=== PATIENT | male | born 1960 | race Caucasian/White ===

== ENCOUNTER 2021-01-20 09:54 | Emergency (ER) | payer OTHER, SELFPAY ==
--- NOTE | ~2021-01-20 | XR_ITS ---
EXAMINATION: XR chest 2V DATE: 01/20/2021 10:14 INDICATION: Hypertension, heart palpitations TECHNIQUE: PA and lateral views of the chest are obtained. COMPARISON: None available FINDINGS: The lungs are free of acute opacities. There is no pleural effusion or pneumothorax. The ca rdiomediastinal silhouette is normal. There are bridging osteophytes at multiple levels in the spine, consistent with diffuse idiopathic skeletal hyperostosis (DISH). Changes of anterior fusion are note d in the lower cervical spine. 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 IMPRESSION: 1. No acute cardiopulmonary abnormality. Reviewed, dictated and finalized at location B.
[2021-01-20 09:57] VITALS: BP 146/94; PULSE 65; RESP 18; TEMP 36.2; O2SAT 98
--- NOTE | 2021-01-20 10:00 | ECG_ITS ---
Measurements Intervals [place] Rate: 61 P: 13 [place]: 186 QRS: -44 QRSD: 100 T: 28 QT: 386 QTc: 391 Interpretive Statements SINUS RHYTHM LEFT AXIS DEVIATION INCOMPLETE RIGHT BUNDLE BRANCH BLOCK BORDERLINE R WAVE PROGRESSION, ANTERIOR LEADS BORDERLINE ECG Electronically Signed On 01-20-2021 13:02:45 CDT by Richi Harrell D.O.
--- NOTE | 2021-01-20 10:07 | PC.NURSE ---
Taken to XRay at this time before blood could be obtained.
[2021-01-20 10:29] LABS: Basophils Absolute Auto 0.1 K/mm3 (0.0-0.1); Basophils Percent Auto 0.8 % (0.2-1.2); Eosinophils Absolute Auto 0.2 K/mm3 (0-0.3); Eosinophils Percent Auto 1.7 % (0-4.4); Hematocrit 46.4 % (42.0-52.0); Immature Granulocyte Absolute 0.04 K/mm3 (0.00-0.031); Immature Granulocyte Percent A 0.5 % (0-0.5); Lymphocytes Absolute Auto 2.47 K/mm3 (0.9-3.2); Lymphocytes Percent Auto 28.8 % (18.3-44.2); Mean Corpuscular HGB Conc 34.5 g/dl (32-36); Mean Corpuscular Hemoglobin 33.4 pg (26-34); Mean Corpuscular Volume 96.9 fl (80-100); Mean Platelet Volume 10.3 fl (7.4-10.4); Monocytes Absolute Auto 0.9 K/mm3 (0.1-0.6); Neutrophils Absolute Auto 4.9 K/mm3 (1.3-6.7); Neutrophils Percent Auto 57.2 % (45.5-73.1); Platelet Count Result 151 k/mm3 (150-375); Red Blood Count 4.79 M/mm3 (4.6-6.20); Red Cell Distribution Width 12.4 % (11.5-14.5); White Blood Count 8.6 K/mm3 (4.5-10.0)
[2021-01-20 10:37] LABS: Anion Gap 10 mmol/L (8-16); Blood Urea Nitrogen 11 mg/dL (9-20); Calcium 9.3 mg/dL (8.4-10.2); Carbon Dioxide 22 mmol/L (22-30); Chloride 109 mmol/L (98-107); Estimated CRCL calculation 103 ml/min; Estimated Glomerular Filt Rate > 60; Glucose 93 mg/dL (75-110); Potassium 4.2 mmol/L (3.4-5.0); Sodium 141 mmol/L (137-145)
[2021-01-20 10:44] LABS: Partial Thromboplastin Time 29.1 SECONDS (22.3-36.8)
[2021-01-20 10:48] LABS: Troponin I < 0.012 ng/mL (0.000-0.034)
[2021-01-20 11:29] VITALS: BP 189/101; PULSE 61; RESP 15; O2SAT 97
--- NOTE | 2021-01-20 11:32 | PC.NURSE ---
Patient denies chest pain, headache, SOB, or dizziness at this time.
[2021-01-20 12:08] VITALS: BP 185/74; PULSE 58; RESP 18; O2SAT 100
--- NOTE | 2021-01-20 12:48 | ED.GENADULT ---
HPI - General Adult General Chief complaint: Recheck/Abnormal Lab/Rx Stated complaint: elevated BP Time Seen by Provider: 01/20/21 11:26 Source: patient, family and RN notes reviewed Mode of arrival: ambulatory Limitations: no limitations History of Present Illness HPI narrative: Patient is a 60-year-old male who presents to emergency department for evaluation of palpitations that occurred patient on arrival to emergency department is in no distress notes that he has had this sensation of an extra beat that he has noticed before seems as though it became more frequent or obvious today patient went and had his blood pressure checked at an outside facility which was elevated patient was going to follow with primary care but then decided to come to emergency department for evaluation patient denies any pain recent illness or other complaints. Related Data Allergies Allergy/AdvReac Type Severity Reaction Status Date / Time NKDA Allergy Unknown Unknown Uncoded 06/29/20 11:04 Review of Systems Review of Systems: All systems reviewed & are unremarkable except as noted in HPI and below PMFSH Past Medical History Medical History (Updated 01/20/21 @ 12:53 by Adiel Pena PA-C) BMI 35.0-35.9,adult Hypertension Family History Family History Father Hypertension Mother Hypertension Cerebrovascular accident Sibling Hypertension Malignant neoplasm of prostate Grandparent Cerebrovascular accident Social History Social History Smoking status: Former smoker Alcohol intake: current Gender identity (if verbalized by the patient): Male Exam Narrative: Exam Narrative: GENERAL: Well-appearing, obese, and in no acute distress. HEAD: Normocephalic, atraumatic. EYES: PERRLA and EOMI. ENT: Nares clear, no rhinorrhea or epistaxis. Mucous membranes moist. NECK: Supple. No adenopathy or masses. CHEST: Clear to auscultation. No respiratory distress. No wheezes rales or rhonchi HEART: Regular rate and rhythm. No murmur heard. EXTREMITIES: Normal range of motion. No edema. SKIN: Warm, dry, no rash. NEURO: No focal deficits. Alert and oriented x3. Cranial nerves II through XII grossly intact PSYCH: Normal mood and affect. Course Course Emergency Course: Patient presented for palpitations does have occasional premature beats which is likely the sensation that he is feeling patient was evaluated made aware of case findings and will be referred back to primary care he is aware of discussions with primary care and agrees with this plan patient is denying any pain or other complaints and feels comfortable to follow-up on an outpatient basis ABCs and vital signs intact and stable Consultations Consultation #1: Discussed case with primary care will follow patient in clinic Date: 01/20/21 Time: 12:54 Vital Signs Vital signs: Vital Signs Temperature 97.1 F L 01/20/21 09:57 Pulse Rate 65 01/20/21 09:57 Respiratory Rate 18 01/20/21 09:57 Blood Pressure 146/94 H 01/20/21 09:57 Pulse Oximetry 98 01/20/21 09:57 Temperature 97.1 F L 01/20/21 09:57 Pulse Rate 58 L 01/20/21 12:08 Respiratory Rate 18 01/20/21 12:08 Blood Pressure 185/74 H 01/20/21 12:08 Pulse Oximetry 100 01/20/21 12:08 Medical Decision Making MDM Narrative Medical decision making narrative: Patient with palpitations found to have premature beat no other high risk changes in the evaluation will follow with primary care felt appropriate for outpatient reevaluation patient hemodynamically stable in agreement with this plan Vital Signs Vital Signs: Vital Signs Temperature 97.1 F L 01/20/21 09:57 Pulse Rate 65 01/20/21 09:57 Respiratory Rate 18 01/20/21 09:57 Blood Pressure 146/94 H 01/20/21 09:57 Pulse Oximetry 98 01/20/21 09:57 Temperature 97.1 F L 01/20/21 09:57 Pulse Rate 58 L 01/20/21 12:08 Respi
[2021-01-20 13:21] VITALS: BP 155/102; PULSE 65; RESP 18; O2SAT 99
== END 2021-01-20 13:22 | disposition home or self-care (01) ==
PROVIDERS: Emergency Medicine Emergency Medical Services; Emergency Provider Emergency Medicine; PCP Family Medicine
DX: R00.2 Palpitations (principal); I10 Essential (primary) hypertension; Z87.891 Personal history of nicotine dependence; I45.10 Unspecified right bundle-branch block; R94.31 Abnormal electrocardiogram [ECG] [EKG]
CPT/HCPCS: 36415; 71046; 80048; 84443; 84484; 85025; 85610; 85730; 93005; 99284

== ENCOUNTER 2021-02-06 08:27 | Outpatient (CLI) | payer OTHER, SELFPAY ==
--- NOTE | ~2021-02-06 | NM_ITS ---
EXAMINATION: NM stress w perf spect multi DATE: 02/06/2021 11:17 INDICATION: Chest pain. Palpitations. Essential hypertension. TECHNIQUE: Rest images were obtained following intravenous administration of 10.5 mCi Tc99m tetrofosm in (Myoview). The patient performed an exercise activity. At peak exercise, 32.8 mCi Tc99m tetrofosmi n (Myoview) was administered intravenously, and stress images were obtained. Data was reconstructed i nto short axis and horizontal and vertical long axis SPECT images. Gated SPECT images were also obtai roopa. COMPARISON: None. FINDINGS: There is normal left ventricular perfusion without definite evidence of reversible or fixed perfusion abnormality to suggest ischemia or infarction. There is normal left ventricular chamber size, wall motion and ejection fraction. Left ventricular ejection fraction measures >70%. IMPRESSION: 1. Normal myocardial perfusion at rest and during stress. 2. Left ventricular ejection fraction measuring >70%. Reviewed, dictated and finalized at location A.
--- NOTE | 2021-02-06 08:39 | ECHO_ITS ---
Patient Info Name: Aayush Garcia Age: 60 years : 1960 Gender: Male Ht: 72 in Wt: 270 lbs BSA: 2.54 m2 HR: 75 bpm BP: 167 / 95 mmHg Technical Quality: Fair Exam Date: 02/06/2021 8:57 AM Exam Location: [facility] Pulmonary Patient Status: Outpatient Admit Date: 02/06/2021 Staff Ordering Physician: Casey Gregorio MD Transportation Economics Teacher: Maile Rai RDCS Attending Provider: Casey Gregorio MD Referring Physician: Darline FLORES; Exam Type: CA echo doppler color flow Study Info Indications - palpitatons htn Complete two-dimensional, color flow and Doppler transthoracic echocardiogram is performed. Summary 1. Complete two-dimensional, color flow and Doppler transthoracic echocardiogram is performed. 2. Left ventricular chamber dimension is normal. 3. Left ventricular systolic function is normal, estimated at 60-65%. 4. There is mildly increased left ventricular wall thickness. 5. The left ventricular diastolic function is grade I diastolic dysfunction. 6. E/e' 7 is not elevated. 7. No pulmonary hypertension, estimated pulmonary arterial systolic pressure is 17 mmHg. Left Ventricle E/e' 7 is not elevated. Left ventricular chamber dimension is normal. Left ventricular systolic function is normal, estimated at 60-65%. There is mildly increased left ventricular wall thickness. The left ventricular diastolic function is grade I diastolic dysfunction. Right Ventricle Right ventricular chamber dimension is normal. Right ventricular systolic function is normal. Left Atria Left atrial chamber dimension is normal. Right Atria Right atrial chamber dimension is normal. Aortic Valve The aortic valve is trileaflet. There is no aortic valve stenosis. There is no aortic valve regurgitation. Pulmonic Valve There is no pulmonic regurgitation. Mitral Valve There is no mitral valve stenosis. There is no mitral valve regurgitation. Tricuspid Valve There is no tricuspid valve regurgitation. No pulmonary hypertension, estimated pulmonary arterial systolic pressure is 17 mmHg. Pericardium/Pleural There is no pericardial effusion. Inferior Vena Cava Normal inferior vena cava with >50% collapse upon inspiration consistent with normal right atrial pressure, 5 mmHg. Aorta The aortic root size at the sinus of Valsalva is normal. Left Ventricular Outflow Tract Name Value Normal LVOT 2D LVOT Diameter 2.1 cm LVOT Doppler LVOT Peak Gradient 5 mmHg LVOT Mean Gradient 3 mmHg LVOT VTI 25 cm LVOT VTI/AV VTI Ratio 0.9 LVOT Stroke Volume 85 ml LVOT CO 17.3 l/min LVOT CI 6.8 l/min/m2 Pulmonic Valve Name Value Normal PV Doppler
--- NOTE | 2021-02-06 08:40 | EST_ITS ---
Patient Info Name: Aayush Garcia Age: 60 years : 1960 Gender: Male Ht: 72 in Wt: 270 lbs BSA: 2.54 m2 Exam Date: 02/06/2021 10:14 AM Exam Location: [facility] Stress Patient Status: Outpatient Admit Date: 02/06/2021 Staff Ordering Physician: Casey Gregorio MD Attending Provider: Casey Gregorio MD Exercise Technologist: Earlene Lange RDCS Exercise Physician: Richi Harrell DO Exam Type: CA stress test treadmill w NM Study Info Indications R00.2 - Palpitations A nuclear stress test was performed. Summary 1. 1. Negative Franklin exercise stress test for ischemic ST changes by ECG criteria. 2. 2. Reduced functional capacity, achieving 7 METs of workload. 3. 3. Hypertensive response to exercise. 4. 4. Appropriate HR response to exercise. 5. 5. Appropriate HR recovery at 1 minute post exercise. 6. 6. Nuclear scan to follow and will be reported separately. Please correlate with it. 7. 7. Patient informed of the above results. Protocol: [place] Stress ECG Details Stage: REST Duration (min): 6 min : 59 sec Speed (mph): 0.0 Grade (%): 0 HR (bpm): 72 SBP (mmHg): 129 DBP (mmHg): 77 METS: --- Stage: REST Duration (min): 13 min : 45 sec Speed (mph): 0.0 Grade (%): 0 HR (bpm): 81 SBP (mmHg): 129 DBP (mmHg): 77 METS: --- Stage: STAGE 1 Duration (min): 1 min : 0 sec Speed (mph): 1.7 Grade (%): 10 HR (bpm): 99 SBP (mmHg): 129 DBP (mmHg): 77 METS: --- Stage: STAGE 1 Duration (min): 2 min : 0 sec Speed (mph): 1.7 Grade (%): 10 HR (bpm): 110 SBP (mmHg): 129 DBP (mmHg): 77 METS: --- Stage: STAGE 1 Duration (min): 3 min : 0 sec Speed (mph): 1.7 Grade (%): 10 HR (bpm): 117 SBP (mmHg): 210 DBP (mmHg): 83 METS: --- Stage: STAGE 2 Duration (min): 1 min : 0 sec Speed (mph): 2.5 Grade (%): 12 HR (bpm): 122 SBP (mmHg): 210 DBP (mmHg): 83 METS: --- Stage: STAGE 2 Duration (min): 2 min : 0 sec Speed (mph): 2.5 Grade (%): 12 HR (bpm): 131 SBP (mmHg): 195 DBP (mmHg): 85 METS: --- Stage: STAGE 2 Duration (min): 3 min : 0 sec Speed (mph): 2.5 Grade (%): 12 HR (bpm): 136 SBP (mmHg): 195 DBP (mmHg): 85 METS: --- Stage: RECOVERY Duration (min): 0 min : 59 sec Speed (mph): 0.0 Grade (%): 0 HR (bpm): 127 SBP (mmHg): 213 DBP (mmHg): 67 METS: --- Stage: RECOVERY Duration (min): 1 min : 59 sec Speed (mph): 0.0 Grade (%): 0 HR (bpm): 104 SBP (mmHg): 213 DBP (mmHg): 67 METS: --- Stage: RECOVERY Duration (min): 2 min : 59 sec Speed (mph): 0.0 Grade (%): 0 HR (bpm): 87 SBP (mmHg): 213 DBP (mmHg): 88 METS: --- Stage: RECOVERY Duration (min): 3 min : 59 sec Speed (mph): 0.0 Grade (%): 0 HR (bpm): 88 SBP (mmHg): 213 DBP (mmHg): 88 METS: ---
== END 2021-02-06 08:28 | disposition home or self-care (01) ==
PROVIDERS: PCP Family Medicine; Visit Provider Family Medicine
DX: R00.2 Palpitations (principal); I10 Essential (primary) hypertension; R07.9 Chest pain, unspecified
CPT/HCPCS: 78452; 93017; 93306; A9502

== ENCOUNTER 2021-03-06 02:03 | Day surgery (SDC) | payer OTHER, SELFPAY ==
[2021-02-27 13:03] VITALS: BMI 37.3
[2021-03-06] MEDS: LACTATED RINGERS 1,000 ML 150 ML IV CONT (09:18)
[2021-03-06 09:20] VITALS: BP 160/96; PULSE 79; RESP 18; TEMP 36.2; O2SAT 95; BMI 35.9
--- NOTE | 2021-03-06 09:23 | WPDANESEPPF ---
Anes - Initial Pre Proc Eval Procedure: Operation Date: 03/06/21 10:00 Proposed Procedures p Screening Colonoscopy - Mendez Giordano MD Date/Time: 03/06/21 09:23 Surgeon: Mendez Giordano MD Pre Op Diagnosis: neoplasm Patient Data Age: 60 Gender: M Height: 1.83 m Weight: 120 kg Last Vital Signs Temp 36.2 C L 03/06/21 09:20 Pulse 79 03/06/21 09:20 Resp 18 03/06/21 09:20 BP 160/96 H 03/06/21 09:20 Pulse Ox 95 03/06/21 09:20 Allergies Allergy/AdvReac Type Severity Reaction Status Date / Time No Known Drug Allergies Allergy Unknown Verified 03/06/21 09:19 Home Medications Medication Instructions Recorded Confirmed Type metoprolol succinate 50 mg See Rx Instructions .ROUTE 02/05/21 02/27/21 Rx tablet,extended release 24 hr .COMPLEX #90 tablet rosuvastatin 20 mg tablet 20 mg PO DAILY #90 tablet 02/13/21 02/27/21 Rx temazepam [Restoril] 15 mg PO ONCE PRN 02/27/21 02/27/21 History Patient hx anesthesia problems: none Family hx anesthesia problems: none PMFSH Past Medical History Medical History (Updated 03/06/21 @ 09:25 by Geoff Wilkerson MD) BMI 35.0-35.9,adult BMI 37.0-37.9, adult Hypertension CHAVEZ (obstructive sleep apnea) Surgical History Surgical History (Updated 03/06/21 @ 09:25 by Geoff Wilkerson MD) H/O colonoscopy Family History Family History Father Hypertension Mother Hypertension Cerebrovascular accident Sibling Hypertension Malignant neoplasm of prostate Grandparent Cerebrovascular accident Social History Social History Alcohol intake: current Substance use type: does not use Living arrangements: with family Gender identity (if verbalized by the patient): Male Anes - Eval Final PreProcedure Day of Procedure 03/06/21 09:23 Patient weight: obese Heart: regular rate and rhythm Lungs: clear to auscultation Airway: Mallampati scale class II Neurological: alert and oriented Last oral intake: >/= 8 hours ASA classification: III Emergent: no Anesthetic plan: proceed Anesthesia type and monitoring: general GIVS and standard monitoring Informed Consent: The patient's anesthetic plan and its attendant risks and benefits were discussed with the patient/family/POA. Questions were solicited and answers provided to the satisfaction of the patient/family/POA.
--- NOTE | 2021-03-06 10:12 | P.CONGI_ITS ---
Assessment and Plan Assessment and plan (1) Screening for colon cancer: Code(s): Z12.11 - Encounter for screening for malignant neoplasm of colon Status: Acute Assessment and Plan: Patient presents for screening colonoscopy. Appears to be at average risk for colon polyps. Further recommendations will be given after endoscopy. GI Consult Note Consult date/time: 03/06/21 10:12 HPI: Aayush Garcia is a 60 year old male Presents for screening colonoscopy. Patient reports his current weight appetite bowel movements are normal. Patient denies abdominal pain. He has had no bleeding. Family history is noncontributory. Last exam was about 10 years ago. Review of Systems Review of Systems: All systems reviewed & are unremarkable except as noted in HPI and below PMFSH Past Medical History Medical History (Updated 03/06/21 @ 09:25 by Geoff Wilkerson MD) BMI 35.0-35.9,adult BMI 37.0-37.9, adult Hypertension CHAVEZ (obstructive sleep apnea) Surgical History Surgical History (Updated 03/06/21 @ 09:25 by Geoff Wilkerson MD) H/O colonoscopy Family History Family History Father Hypertension Mother Hypertension Cerebrovascular accident Sibling Hypertension Malignant neoplasm of prostate Grandparent Cerebrovascular accident Social History Social History Alcohol intake: current Substance use type: does not use Living arrangements: with family Gender identity (if verbalized by the patient): Male Meds Home Medications and Allergies Home Medications Medication Instructions Recorded Confirmed Type metoprolol succinate 50 mg See Rx Instructions .ROUTE 02/05/21 02/27/21 Rx tablet,extended release 24 hr .COMPLEX #90 tablet rosuvastatin 20 mg tablet 20 mg PO DAILY #90 tablet 02/13/21 02/27/21 Rx temazepam [Restoril] 15 mg PO ONCE PRN 02/27/21 02/27/21 History Allergies Allergy/AdvReac Type Severity Reaction Status Date / Time No Known Drug Allergies Allergy Unknown Verified 03/06/21 09:19 Vital Signs Vital Signs - 24 hr 03/06/21 09:20 Temperature 97.1 F L Pulse Rate 79 Respiratory Rate 18 Blood Pressure 160/96 H Pulse Oximetry 95 Exam Narrative: physical exam reveals patient to be alert. Vital signs stable. HEENT exam is unremarkable. Patient is anicteric. Lungs are clear to auscultation and percussion. Heart is without murmur or extra sounds. Abdom inal exam bowel sounds are present soft nontender with no hepatosplenomegaly. Digital external rectal exam is normal.
[2021-03-06 10:17] VITALS: BP 146/81; PULSE 72; RESP 14; O2SAT 93
[2021-03-06 10:27] VITALS: BP 130/92; PULSE 71; RESP 14; O2SAT 94
[2021-03-06 10:37] VITALS: BP 127/88; PULSE 68; RESP 16; O2SAT 98
== END 2021-03-06 10:46 | disposition home or self-care (01) ==
PROVIDERS: PCP Family Medicine; Visit Provider Internal Medicine Gastroenterology
PROC: 0DJD8ZZ Inspection of Lower Intestinal Tract, Via Natural or Artificial Opening Endoscopic (ICD-10-PCS; CPT 45378; principal; 2021-03-06 10:00)
DX: Z12.11 Encounter for screening for malignant neoplasm of colon (principal); I10 Essential (primary) hypertension; G47.33 Obstructive sleep apnea (adult) (pediatric); K57.30 Diverticulosis of large intestine without perforation or abscess without bleeding; K64.8 Other hemorrhoids
CPT/HCPCS: 45378; J2704; J7120

== ENCOUNTER 2021-07-06 01:23 | Day surgery (SDC) | payer OTHER, SELFPAY ==
[2021-06-30 09:27] VITALS: BMI 35.6
--- NOTE | 2021-06-30 09:40 | PC.NURSE ---
Report to the Outpatient Waiting Room, entrance under the green pavilion located off [facility], at time 1030 on date 07/06/21. OR Time: 1230. - You and your visitor will be asked a series of questions to screen for COVID 19 for your protection. - A mask is required within the hospital. - Only one visitor is allowed at this time. Patient visitors will be guided where to wait when not with patient. Preoperative COVID Testing Requirements: No COVID Test needed if: (proof is required; if not received patient will have Rapid Test prior to entry) - Patient has received COVID Vaccine at least 14 days prior to procedure date or - Patient has positive COVID test result within last 90 days of surgery date. COVID Test needed if above criteria is not met If not COVID vaccinated a COVID test must be conducted within 72 hours of surgery and patient is asked to isolate self from time of testing until procedure. You will go to the [facility] for your COVID testing. The [facility] is located at the corner of [address] [facility]. You will only be called if COVID results are positive and your surgeon may reschedule your elective surgery date. Patients may have clear liquids (water, carbonated beverages, clear teas, apple juice) until 3 hours prior to surgery with a maximum of 20 ounces. - No food from midnight until time of surgery - Infants may have breast milk until 4 hours before surgery, infant formula 6 hours prior to surgery. - Children will be allowed to drink immediately following surgery. If applicable, please bring a bottle or sippy cup to assist with drinking. Juice, water, soda, and popsicles are readily available. For infants on formula, please bring formula the day of surgery. Pacifiers are allowed. Take the following medications with a SIP of water the morning of surgery: METOPROLOL Medications to discontinue per physician: VITAMINS/SUPPLEMENTS Date to take last dose: 07/03/21 Please no make-up, nail fijian, hairspray, perfume, deodorant, or body powder the day of surgery. No jewelry (including any body piercings) or valuables the day of surgery, leave them at home. Please take a shower or bath the night before, or the morning of, surgery with an antibacterial soap. Wear comfortable, loose fitting clothing. Children are encouraged to wear pajamas. - Jewelry must be removed prior to entering the operating room. Rings and piercings that are not removed may be cut off. - The hospital will not accept responsibility for valuables. - Please leave all valuables, including medications, at home the day of surgery. If you are going home after surgery, a licensed motor coach driver must drive you home. - NO public transportation without another adult. - We recommend that an adult stay with you for 24 hours following discharge. - We also recommend that you do not drive, make important decision, drink alcoholic beverages, or take any drugs that were not prescribed by your health care provider for at least 24 hours after your discharge time. For Pediatric surgeries, we recommend two adults accompany the child home (only one inside the building at this time). Follow any additional instructions given to you from your surgeon. Telephone instructions given to ALMAS BROWN and asked if any additional questions and then verbalized understanding. Patient advised to call surgeon office or pre surgery nurse liaison [phone] if any additional questions.
[2021-07-06] VITALS (8 sets, daily range): BP systolic 121–162; BP diastolic 81–98; PULSE 51–78; RESP 12–20; TEMP 36.4–36.5; O2SAT 92–98
--- NOTE | ~2021-07-06 | XR_ITS ---
EXAMINATION: XR surgery orthopedic EXAM DATE: 07/06/2021 12:05 INDICATION: Right foot pain, surgery. TECHNIQUE: Fluoroscopy used during right calcaneal surgery performed by Dr. Kelvin Huang MD. R adiologist was not present for the imaging or procedure. Total fluoroscopic time of 2 seconds. The DAP for this procedure was 0.0024 mGym2. A total of 3 images sent to PACS from the exam. There is n o prior study for comparison. FINDINGS: Surgical defect posterior to the right calcaneus and probable osteotomy at this location, resection of posterior calcaneal enthesopathy. Correlate with procedure note. IMPRESSION: Fluoroscopy used during right foot surgery. Reviewed, dictated and finalized at location B. [employer]
--- NOTE | 2021-07-06 07:08 | WPDHPUPDATE1 ---
History and Physical Update Update Date/Time: 07/06/21 07:08 History and Physical has been reviewed, including an updated exam of the patient. There are NO changes in the patient's condition. Risks, benefits, and alternatives have been discussed and questions answered. Patient agrees to proceed with procedure.
[2021-07-06] MEDS: ACETAMINOPHEN 500 MG TABLET 1000 MG PO (09:52)
--- NOTE | 2021-07-06 10:02 | WPDANESEPPF ---
Anes - Initial Pre Proc Eval Procedure: Operation Date: 07/06/21 12:30 Proposed Procedures p Right Achilles Reconstruction, Excision Calcaneal Exostosis, Possible Flexor Hallucis Longus Tendon Transfer - Kelvin Huang MD Date/Time: 07/06/21 10:02 Surgeon: Kelvin Huang MD Pre Op Diagnosis: Rt Achilles Tendinosis, Calcaneal Exostosis Patient Data Age: 61 Gender: M Height: 1.85 m Weight: 122.47 kg Allergies Allergy/AdvReac Type Severity Reaction Status Date / Time morphine Allergy Unknown Agitated Verified 07/06/21 09:41 Home Medications Medication Instructions Recorded Confirmed Type [id number]-[id number]-GQ-lycopen-lutein 1 tablet PO DAILY 06/30/21 07/06/21 History [Centrum Silver Men] omega 0-sne-cqc-fish oil [Fish Oil] 1 cap PO DAILY 06/30/21 07/06/21 History metoprolol succinate 50 mg PO DAILY 07/06/21 07/06/21 History rosuvastatin 20 mg PO DAILY 07/06/21 07/06/21 History Patient hx anesthesia problems: none Family hx anesthesia problems: none Results Review: All pre-operative results and documents have been reviewed as part of the pre-operative evaluation. [facility], [facility] Past Medical History Medical History Achilles tendinosis of right lower extremity Arthritis BMI 35.0-35.9,adult BMI 37.0-37.9, adult DVT (deep venous thrombosis) Exostosis of right posterior calcaneus HLD (hyperlipidemia) Hypertension CHAVEZ (obstructive sleep apnea) Rupture of right Achilles tendon Surgical History Surgical History H/O colonoscopy H/O neck surgery 2017 per Pt questionaire History of back surgery History of hip surgery 1995 and 1996 per patient questionaire Family History Family History Father Hypertension Mother Hypertension Cerebrovascular accident Sibling Hypertension Malignant neoplasm of prostate Grandparent Cerebrovascular accident Other Arthritis Social History Social History Smoking packs per day: 1 Smoking cigarettes per day: 20.0 Years smoked: 10 Smoking pack-years: 10.00 Smoking status: Former smoker Tobacco type: cigarettes Smoking end date: 07/22/88 Alcohol intake: current Alcohol use details: WOULD NOT SAY # OF DRINKS Substance use: never Substance use type: does not use Living arrangements: with family Additional occupation/education comments: Maintenance at [employer] Gender identity (if verbalized by the patient): Male Spiritual care concerns: No Anes - Eval Final PreProcedure Day of Procedure 07/06/21 10:02 Patient weight: obese Heart: regular rate and rhythm Lungs: clear to auscultation Airway: Mallampati scale class II Neurological: alert and oriented Last oral intake: >/= 8 hours ASA classification: III Emergent: no Anesthetic plan: proceed Anesthesia type and monitoring: general ETT and standard monitoring Results Review: All pre-operative results and documents have been reviewed as part of the pre-operative evaluation. Informed Consent: The patient's anesthetic plan and its attendant risks and benefits were discussed with the patient/family/POA. Questions were solicited and answers provided to the satisfaction of the patient/family/POA.
[2021-07-06] MEDS: LACTATED RINGERS 1,000 ML 30 ML IV CONT (10:30)
[2021-07-06] MEDS: KETOROLAC 15 MG/ML VIAL (*BKC) IV PUSH (10:30)
[2021-07-06] MEDS: ceFAZolin 3 GM/D5W 100 ML 100 ML IVPB (11:04)
[2021-07-06] MEDS: BUPIVACAINE HCL 0.5% PF 30 ML VIAL INFILTRATE (11:47)
--- NOTE | 2021-07-06 13:40 | W.PM.PROC2 ---
Procedure Note - Detailed Date of Procedure 07/06/21 Pre-op Diagnosis Rt Achilles Tendinosis, Calcaneal Exostosis, Achilles tendon rupture Post-op Diagnosis same Procedure Performed Right Achilles tendon reconstruction, excision posterior calcaneal exostosis Surgeon Kelvin Huang MD [employer] visitor services assistant Anesthesia general Indications 61-year-old gentleman sustained a right Achilles tendon rupture. Also with large posterior calcaneal exostosis and degenerative changes of the insertion of the Achilles. Presents for operative treatment. Findings Rupture of the Achilles tendon 4 cm above the insertion. Severe degenerative changes of the tendon and the insertion. Large posterior calcaneal exostosis. Description of Procedure Patient identified in the preoperative holding. Informed consent given. Operative extremity marked. Patient received intravenous antibiotics. Patient brought to the operating room where underwent general anesthetic by anesthesia team. Positioned prone on operating room table. Care was taken in transferring the patient from supine on the gurney to prone position on the operating table. Gel padding was ensured for the pelvis and the chest. Careful securing of the head neck as well as upper extremities. Time-out performed confirming the patient, site of the surgery and the plan. Right lower extremity prepped draped usual sterile surgical fashion using ChloraPrep skin solution. Foot and ankle exsanguinated and a thigh tourniquet inflated to 250 mmHg. Local anesthetic with 0.5% Marcaine infiltrated around the posterior heel. Longitudinal posterior midline incision utilized over the distal Achilles tendon and posterior calcaneus with a 15 blade knife. Hemostasis controlled electrocautery. Care was taken to develop full-thickness soft tissue flaps medially and laterally. The Achilles paratenon was incised in the midline and reflected. Achilles tendon noted be enlarged and thickened. The insertion point was intact with degenerative changes but a rupture of the tendon 5 cm above the insertion was noted with retraction. Calcification within the tendon noted. This was sharply debrided with 15 blade knife. Achilles tendon was then sharply elevated off the posterior calcaneus. Large posterior calcaneal exostosis noted. This was removed in its entirety with an osteotome and rongeur. The edges were smoothed. Image intensification was brought in and confirmed the resection of the posterior calcaneus. Thorough irrigation performed. Due to the pre operative weakness and degenerative changes- flexor hallucis longus transfer was planned. Dissection through the posterior fascia allowed visualization of the flexor hallucis tendon which was verified with toe movement. This was then released deep. Stay suture was placed into the tendon. The transfer site was then prepared. Guide pin placed in the posterior calcaneus. The tendon was measured and a size 8 mm bio tenodesis hole was prepared. The tendon was then passed and secured with a 7 mm bio tenodesis screw with the foot in correct tension. Lastly, reconstruction of the Achilles tendon performed with a speed bridge. Torn portion of the Achilles tendon was 1st prepared with 2. Ethibond suture placed in a running [place] type locking suture configuration. Anchors were placed medial and lateral at the posterior margin of the calcaneus. The suture was passed through the Achilles tendon. This was then secured at more distal anchor sites. The midline split of the Achilles tendon was repaired with 0 Vicryl interrupted suture. Thorough irrigation done of the wound. . Paratenon then repaired with 3 0 Monocryl interrupted suture. Subcutaneous tissue repaired with 3 0 Monocryl interrupted suture and skin repaired with susanne. The tourniquet was released. Sterile dressing applied. The patient was then woken from anesthesia, extubated and taken to the recovery room in stable condition. A
== END 2021-07-06 15:30 | disposition home or self-care (01) ==
PROVIDERS: PCP Family Medicine; Visit Provider Orthopaedic Surgery
PROC: (CPT 27650; principal; 2021-07-06 12:30)
DX: S86.011A Strain of right Achilles tendon, initial encounter (principal); M76.61 Achilles tendinitis, right leg; M77.31 Calcaneal spur, right foot; X50.0XXA Overexertion from strenuous movement or load, initial encounter; I10 Essential (primary) hypertension; E78.5 Hyperlipidemia, unspecified; G47.33 Obstructive sleep apnea (adult) (pediatric); Z86.718 Personal history of other venous thrombosis and embolism; Z87.891 Personal history of nicotine dependence; E66.9 Obesity, unspecified; Z68.36 Body mass index [BMI] 36.0-36.9, adult
CPT/HCPCS: 27650; 28118; A9270; C1713; J0330; J0690; J1170; J1885; J2250; J2405; J2704; J2710; J3010; J7120